=== PATIENT | female | born 1980 | race Two or more races ===

== ENCOUNTER 2020-07-24 08:18 | Emergency (ER) | payer MEDICAID ==
[~2020-07-24] VITALS: Ht 152.4 cm; Wt 69.5 kg
[2020-07-24 08:43] VITALS: BP 130/81
[2020-07-24] MEDS ORDERED: LIDOcaine 1% 30ml preserv. free vial IJ ONE (10:35)
== END 2020-07-24 11:08 | disposition home or self-care (01) ==
LOC: ER 08:21
DX: R07.89 Other chest pain (principal); R07.81 Pleurodynia
CPT/HCPCS: 20552; 71046; 93005; 99283; 99284

== ENCOUNTER 2022-02-10 15:29 | Emergency (ER) | payer BC, MEDICAID ==
[~2022-02-10] VITALS: Ht 152.4 cm; Wt 63.6 kg
[2022-02-10 16:38] VITALS: BP 124/92
[2022-02-10] MEDS ORDERED: ipratropium/albuterol 3ml nebule NEB ONE (17:50)
[2022-02-10] MEDS ORDERED: ALBU90AE INH (19:42)
[2022-02-10] MEDS ORDERED: AZIT250T29 PO (19:42)
[2022-02-10] MEDS ORDERED: METH4TAB81 PO (19:42)
== END 2022-02-10 19:52 | disposition home or self-care (01) ==
LOC: ER 15:29
DX: J45.41 Moderate persistent asthma with (acute) exacerbation (principal); Z20.822 Contact with and (suspected) exposure to COVID-19; Z79.899 Other long term (current) drug therapy
CPT/HCPCS: 87635; 94640; 99283; C9803; 94760

== ENCOUNTER 2023-02-20 19:25 | Emergency (ER) | payer BC, MEDICAID ==
[~2023-02-20] VITALS: Ht 152.4 cm; Wt 70.5 kg
[~2023-02-20 19:25] MED LIST: ALBU90AE INH; METH4TAB81 PO
[2023-02-20] MEDS ORDERED: ipratropium/albuterol 3ml nebule NEB ONE (19:30)
[2023-02-20 19:44] VITALS: PULSE 82; RESP 2; O2SAT 96
[2023-02-20 19:57] VITALS: PULSE 81; O2SAT 95
[2023-02-20] MEDS ORDERED: dexamethasone sod phosphate 10mg/ml inj PO STA (20:16)
[2023-02-20] MEDS ORDERED: PRED20TA PO (20:34)
[2023-02-20 20:41] VITALS: BP 136/70; PULSE 82; RESP 16; TEMP 98.7; O2SAT 98
== END 2023-02-20 20:45 | disposition home or self-care (01) ==
LOC: ER 19:26
DX: J45.909 Unspecified asthma, uncomplicated (principal); F12.90 Cannabis use, unspecified, uncomplicated; Z72.89 Other problems related to lifestyle; Z79.899 Other long term (current) drug therapy
CPT/HCPCS: 71045; 93005; 94640; 99283; J1100; 94760

== ENCOUNTER 2023-04-13 22:22 | Emergency (ER) | payer BC, MEDICAID ==
[~2023-04-13] VITALS: Ht 152.4 cm; Wt 65.9 kg
[2023-04-13 22:35] VITALS: BP 97/55
[2023-04-13] MEDS ORDERED: PRED50TA PO (23:01)
[2023-04-13] MEDS ORDERED: BUDE10.2 INH (23:01)
[2023-04-13] MEDS: ipratropium/albuterol 3ml nebule NEB ONE (23:23)
[2023-04-13 23:25] VITALS: PULSE 91; RESP 18; O2SAT 94
[2023-04-13 23:35] VITALS: PULSE 96; RESP 18; O2SAT 96
[2023-04-13 23:40] VITALS: PULSE 79; RESP 18; TEMP 98.4; O2SAT 96
[2023-04-13] MEDS: prednisone 10mg tablet PO SCH (23:40)
== END 2023-04-13 23:59 | disposition home or self-care (01) ==
LOC: ER 22:23
DX: J45.909 Unspecified asthma, uncomplicated (principal); F12.90 Cannabis use, unspecified, uncomplicated; Z72.89 Other problems related to lifestyle; Z79.52 Long term (current) use of systemic steroids
CPT/HCPCS: 94640; 99283; J7512; 94760

== ENCOUNTER 2023-05-19 15:56 | Emergency (ER) | payer MEDICAID ==
[~2023-05-19] VITALS: Ht 152.4 cm; Wt 76.0 kg
[~2023-05-19 15:56] MED LIST changes: +BUDE10.2 INH; +PRED50TA PO
[2023-05-19 16:02] VITALS: BP 124/77; PULSE 66; RESP 16; O2SAT 95
[2023-05-19] MEDS: diphenhydrAMINE 25mg capsule PO ONE (16:45)
[2023-05-19] MEDS: DEXAMETHASONE 6 MG TABLET PO SCH (16:46)
[2023-05-19 17:13] VITALS: TEMP 98.1
== END 2023-05-19 18:25 | disposition home or self-care (01) ==
LOC: ER 15:56
DX: S60.861A Insect bite (nonvenomous) of right wrist, initial encounter (principal); F12.10 Cannabis abuse, uncomplicated; J45.909 Unspecified asthma, uncomplicated; Z79.899 Other long term (current) drug therapy; W57.XXXA Bitten or stung by nonvenomous insect and other nonvenomous arthropods, initial encounter; Y93.89 Activity, other specified; Y92.89 Other specified places as the place of occurrence of the external cause; Y99.8 Other external cause status
CPT/HCPCS: 99283; J8540

== ENCOUNTER 2024-08-07 10:33 | Emergency (ER) | payer MEDICAID ==
[~2024-08-07] VITALS: Ht 152.4 cm; Wt 57.1 kg
[2024-08-07 10:34] VITALS: BP 106/62; PULSE 78; RESP 16; TEMP 98; O2SAT 95
--- NOTE | 2024-08-07 13:22 | Physician Documentation ---
History of Present Illness ~ Chief Complaint: Bite-insect Stated Complaint: BUG BITE Time Seen by MD: 11:12 Primary Medical Doctor: NONE HPI Patient is seen today with complaints of a bite on her left cheek of her face. Patient states [place] and felt some kind of bug bite on her left cheek and feels it is swelling a little bit. Patient has no other concern or complaint at this time. She denies any chest pain or shortness of breath or abdominal pain or nausea, vomiting, diarrhea. Patient denies any shortness of breath or trouble breathing. She denies any throat swelling. Tetanus within 5 years?: Yes (2021) Medication Reconciliation Allergies: Coded Allergies: No Known Allergies (Unverified , 04/13/23) Scheduled Budesonide/Formoterol Fumarate (Symbicort 160-4.5 Mcg Inhaler), 2 PUFFS INH Q12H Methylprednisolone (Medrol Dosepak), 1 MG PO DAILY Prednisone (Prednisone), 1 TAB PO DAILY Scheduled PRN Albuterol Sulfate (Proair Respiclick), 2 PUFFS INH Q6H PRN PRN for shortness of breath Past Medical History Past Medical History: Asthma Past Surgical History: noncontributory Smoking Status: Never smoker Alcohol Use: Occasionally Drug Use: marijuana Lives In: Home Occupation: employed Review of Systems Constitutional: Denies: chills, fever, weakness Eyes: Denies: pain, blurred vision ENT: Denies: ear pain, nose pain, throat pain, mouth pain Respiratory: Denies: cough, shortness of breath Cardiovascular: Denies: chest pain, palpitations Gastrointestinal: Denies: abdominal pain, nausea, vomiting Genitourinary: Denies: burning, dysuria Female Genitalia: Denies: vaginal discharge, pelvic pain Neurological: Denies: headache, dizziness Musculoskeletal: Denies: pain, swelling Integumentary: Denies: rash, lesions Allergic/Immunologic: Denies: hives, itching Hematologic/Lymphatic: Denies: no symptoms reported Psychiatric: Denies: depression, anxiety Physical Exam Vital Signs: Temperature: 98.0, Source: Temporal, Heart Rate: 78, Respiratory Rate: 16, BP: 106/62, Pulse Oximetry: 95, Weight: 57.100 Oxygen Flow Rate: 0 Physical Exam General: Awake and Alert, no acute distress. HEENT: Conjunctiva pink, Sclera clear, Mucus Membranes moist. Neck: Supple without masses and tenderness. Resp: Unlabored. Lungs clear to auscultation bilaterally. Heart: Regular Rate and rhythm, normal S1 and S2 without murmur, rub or gallop. Extremities: No cyanosis,clubbing or edema. Skin: Patient on exam has a small area of well did erythematous skin on her left cheek of her face measuring approximately 7 mm across. I do not appreciate any other sign of cellulitis or spreading infection. Is no purulence or drainage or discharge. There is a small area of abrasion superficially possibly from excoriation or scratching. Progress Results/Orders Results/Orders Vital Signs 08/07/24 10:34 Temp 98.0 Pulse 78 Resp 16 B/P (MAP) 106/62 Pulse Ox 95 O2 Flow Rate 0 Medical Decision Making Findings Patient is seen today with complaints of a bite on her left cheek of her face. Patient states she was [place] and felt some kind of bug bite on her left cheek and feels it is swelling a little bit. Patient has no other concern or complaint at this time. She denies any chest pain or shortness of breath or abdominal pain or nausea, vomiting, diarrhea. Patient denies any shortness of breath or trouble breathing. She denies any throat swelling. Patient given 10 mg of Decadron IM in the ED today. Patient also given prescrip tion of mupirocin ointment sent to patient pharmacy. As well as Medrol Dosepak. Patient will return to ED with any worsening, concerning or changing symptoms. Shared decision-making utilized with the patient today. Departure Disposition: HOME / SELF CARE / HOMELESS Impression: Primary Impression: Insect bites Qualified Codes: W57.XXXA - Bitten or stung by nonvenomous insect and other nonvenomous arthropods, initial encounter Condition: Stable Discharge Instructions: Insect Bite, Adult, [id number] Additional Instructions: Patient given 10 mg of Decadron IM in the ED today. Patient also given prescription of mupirocin ointment sent to patient pharmacy. As well as Medrol Dosepak. Patient will return to ED with any worsening, concerning or changing symptoms. Shared decision-making utilized with the patient today. Referrals: NO PRIMARY CARE PROVIDER (PCP) Prescriptions Methylprednisolone (Medrol Dosepak) 4 Mg Tab.ds.pk 0 PO UD, #21 TAB 0 Refills take 6 Pills Day 1, 5 Pills Day 2, 4 Pills Day 3, 3 Pills Day 4, 2 Pills Day 5 and 1 pill Day 6 Prov: RANDAL VERDUZCO 08/07/24 Mupirocin* (Bactroban*) 22 Gm Tube 1 APPLIC TOP Q8H for 7 Days, #22 GM apply to affected area(s) Prov: RANDAL VERDUZCO 08/07/24 Signature Scribe Signature: No scribe Attestation: No scribe RANDAL VERDUZCO Aug 07, 2024 13:22
[2024-08-07] MEDS: dexamethasone sod phosphate 10mg/ml inj IM STA (13:27)
[2024-08-07] MEDS ORDERED: METH4TAB81 PO (13:31)
[2024-08-07] MEDS ORDERED: MUPI22OI30 TOP (13:31)
== END 2024-08-07 13:35 | disposition home or self-care (01) ==
LOC: ER 10:33
DX: J45.909 Unspecified asthma, uncomplicated (principal); F12.90 Cannabis use, unspecified, uncomplicated; Z79.899 Other long term (current) drug therapy; Z72.89 Other problems related to lifestyle; S00.81XA Abrasion of other part of head, initial encounter; W57.XXXA Bitten or stung by nonvenomous insect and other nonvenomous arthropods, initial encounter; Y93.89 Activity, other specified; Y92.89 Other specified places as the place of occurrence of the external cause; Y99.8 Other external cause status
CPT/HCPCS: 96372; 99283; J1100